=== PATIENT | male | born 1970 | race Caucasian/White ===

== ENCOUNTER 2021-08-10 09:22 | Emergency (ER) | payer BC ==
[~2021-08-10] VITALS: Ht 177.8 cm; Wt 154.2 kg
[2021-08-10] MEDS ORDERED: Morphine 4mg Syringe 4 MG/ML INJ IV ONE (09:45)
[2021-08-10 10:04] LABS: BASOPHILS # (AUTO) 0.1 (0.0-0.1); BASOPHILS % 0.7 % (0.0-1.0); EOSINOPHILS # (AUTO) 0.1 (0.0-0.4); EOSINOPHILS % 1.3 % (0.0-6.0); HEMATOCRIT 53.1 % (38.2-49.6); HEMOGLOBIN 17.3 g/dL (14.0-18.0); LYMPHOCYTES # (AUTO) 1.4 (1.0-3.2); LYMPHOCYTES % 14.8 % (18.0-39.1); MEAN CORPUSCULAR HEMOGLOBIN 29.3 pg (28-32); MEAN CORPUSCULAR HGB CONC 32.6 g/dL (31-35); MONOCYTES # (AUTO) 0.6 (0.2-0.8); MONOCYTES % 5.8 % (4.4-11.3); NEUTROPHILS # (AUTO) 7.4 (2.1-6.9); PLATELET COUNT 274 x10e3/uL (140-360); RED CELL DISTRIBUTION WIDTH 14.2 % (11.7-14.4)
[2021-08-10 10:09] LABS: CLARITY,URINE CLEAR (CLEAR); COLOR,URINE YELLOW (YELLOW); KETONES,URINE NEGATIVE (NEGATIVE); LEUKOCYTE ESTERASE ,URINE NEGATIVE (NEGATIVE); NITRITE,URINE NEGATIVE (NEGATIVE); PROTEIN,URINE DIPSTICK NEGATIVE (NEGATIVE)
[2021-08-10 10:10] LABS: URINE UROBILINOGEN 0.2 mg/dL (0.2 - 1)
[2021-08-10 10:15] LABS: BACTERIA,URINE FEW /HPF; EPITHELIAL CELLS,URINE FEW /LPF; RBC,URINE 0-5 /HPF (0-5); WBC,URINE (MAN) 0-5 /HPF (0-5)
[2021-08-10 10:20] LABS: ALBUMIN 4.3 g/dL (3.5-5.0); ALBUMIN/GLOBULIN RATIO 1.4 (0.8-2.0); ANION GAP 9.4 mmol/L (8-16); CALCIUM 9.3 mg/dL (8.4-10.2); CREATININE, SERUM 0.84 mg/dL (0.72-1.25); POTASSIUM 4.4 mmol/L (3.5-5.1)
[2021-08-10] MEDS ORDERED: CYCLOBENZAPRINE HCL 10 MG TAB PO ONE (10:30)
[2021-08-10] MEDS ORDERED: SODIUM CHLORIDE 0.9% 50ML 50 ML ONE (11:13)
[2021-08-10] MEDS ORDERED: IOPAMIDOL 370 MG/ML 200 ML INFUS..BTL INJ ONE (11:13)
[2021-08-10] MEDS ORDERED: KETOROLAC TROMETHAMINE 30 MG/ML VIAL IV STA (11:21)
[2021-08-10] MEDS ORDERED: HYDROCODON-ACE1 EAC9 PO ×3 (11:56→12:47)
[2021-08-10 12:29] VITALS: BP 138/78
== END 2021-08-10 12:15 | disposition home or self-care (01) ==
LOC: ER 10:34
DX: M54.50 Low back pain, unspecified (principal); R10.9 Unspecified abdominal pain; R91.8 Other nonspecific abnormal finding of lung field
CPT/HCPCS: 36415; 74177; 80053; 81001; 85025; 99284; J1885; J2270; Q9967

== ENCOUNTER 2021-08-25 15:00 | Outpatient (RCR) | payer BC ==
[~2021-08-25 15:00] MED LIST: HYDROCODON-ACE1 EAC9 PO
== END 2021-08-28 ==
LOC: PT 15:00
PROVIDERS: ATTEND Neurological Surgery
DX: M51.16 Intervertebral disc disorders with radiculopathy, lumbar region (principal); R26.2 Difficulty in walking, not elsewhere classified; M62.81 Muscle weakness (generalized); M54.50 Low back pain, unspecified